=== PATIENT | male | born 1955 | race Caucasian/White ===

== ENCOUNTER → 2018-07-02 | Day surgery (SDC) | payer BC ==
[2018-06-30 15:29] LABS: BASOPHILS % 0.5 % (0.0-1.0); EOSINOPHILS # (AUTO) 0.1 (0.0-0.4); EOSINOPHILS % 1.2 % (0.0-6.0); HEMOGLOBIN 15.5 g/dL (14.0-18.0); LYMPHOCYTES # (AUTO) 2.4 (1.0-3.2); LYMPHOCYTES % 31.3 % (18.0-39.1); MEAN CORPUSCULAR HEMOGLOBIN 32.6 pg (28-32); MEAN CORPUSCULAR HGB CONC 34.4 g/dL (31-35); MEAN CORPUSCULAR VOLUME 94.5 fL (81-99); MONOCYTES # (AUTO) 0.8 (0.2-0.8); MONOCYTES % 10.7 % (4.4-11.3); NEUTROPHILS # (AUTO) 4.2 (2.1-6.9); PLATELET COUNT 207 x10e3/uL (140-360); RED BLOOD COUNT 4.76 x10e6/uL (4.3-5.7); RED CELL DISTRIBUTION WIDTH 13.5 % (11.7-14.4)
[~2018-07-02] MED LIST: ADVIL200 M1 PO; ALIGN4 MG PO; ATORVASTATIN CA20 MG PO; ATORVASTATIN CA40 MG PO; BENADRYL25 M1 PO; BENICAR HCT 401 EAC1 PO; BENICAR HCT 401 EACH PO; CO Q-10 100 MG1 EACH PO; COCONUT OIL100 GM PO; ECOTRIN325 MG PO; EPHEDRINE SULFATE INJ 50 MG/10 ML SYR ONE; FENTANYL CITRATE/PF 100MCG/2 ML INJ ONE; FISH OIL 1,0001 EAC2 PO; FLAXSEED340 GM PO; GLUCAGON FOR INJ 1 MG VIAL ONE; HYOSCYAMINE SULFATE 0.5 MG/ML INJ ONE; LIDOCAINE HCL 2% LOCAL INJ 5 ML SDV VIAL INJ ONE; METOPROLOL TART25 MG PO; MIDAZOLAM HCL 2 MG/2 ML VIAL ONE; MULTI-VITAMIN1 EACH PO; NIACIN500 M1 PO; PANTOPRAZOLE SO40 MG PO; PRILOSEC20 MG PO; PROPOFOL IV EMULSION 10 MG/ML 50 ML VIAL ONE; PROTONIX40 MG/ML PO; VITAMIN B-121000 MCG PO; VITAMIN C1000 MG PO
[2018-07-02 12:00] VITALS: BP 108/70
--- NOTE | 2018-07-02 14:00 | Operative Report ---
DATE OF PROCEDURE: July 02, 2018 REFERRING PHYSICIAN: Dr. Johnny Rene. PROCEDURE PERFORMED: Colonoscopy and polypectomy. INDICATIONS FOR COLONOSCOPY: Surveillance colonoscopy, personal history of numerous colon polyps. MEDICATION: Patient was done under MAC. Please see anesthesiologist's note. PROCEDURE: With the patient in the left lateral decubitus position, the flexible fiberoptic Olympus colonoscope was inserted into the rectum with ease and advanced all the way to the cecum. There were some retained stools, but visualization was fair. The scope was then withdrawn slowly. Mucosa overlying the cecum appeared to be within normal limits as well as the ascending and the transverse colon. Four polyps were snared, and two polyps were hot biopsied from the descending colon. Diverticular disease was noted to involve the descending and the sigmoid colon. A total of 6 polyps were hot biopsied from the sigmoid colon. A total of 15 polyps were hot biopsied from the rectum. The scope was then retroflexed into the distal rectum and small internal hemorrhoids were noted, none of which was actively bleeding. The scope was then straightened out. It was subsequently withdrawn. Patient tolerated procedure well. IMPRESSION: 1. Descending colon polyps times 6, 4 snared and 2 hot biopsied. 2. Diverticulosis. 3. Sigmoid colon polyps times 6 hot biopsied. 4. Rectal polyps times 15 hot biopsied. 5. Internal hemorrhoids, none actively bleeding. PLAN: Follow up histology. Initiate high-fiber low-fat diet. Initiate high-fiber supplement. Patient has hyper-polyposis syndrome by definition. Will need a followup colonoscopy later this year to remove metachronous colon and rectal polyps. Job#: [id number] EV cc:JOHNNY RENE DO
== END | disposition home or self-care (01) ==
LOC: OR 09:04
PROVIDERS: ATTEND Internal Medicine Gastroenterology
DX: Z12.11 Encounter for screening for malignant neoplasm of colon (principal); Z86.010 Personal history of colon polyps; K63.5 Polyp of colon; K62.1 Rectal polyp; I10 Essential (primary) hypertension; E78.00 Pure hypercholesterolemia, unspecified; I25.2 Old myocardial infarction; F17.210 Nicotine dependence, cigarettes, uncomplicated; K29.70 Gastritis, unspecified, without bleeding; K44.9 Diaphragmatic hernia without obstruction or gangrene; K64.8 Other hemorrhoids; K21.0 Gastro-esophageal reflux disease with esophagitis; K57.30 Diverticulosis of large intestine without perforation or abscess without bleeding; Z01.810 Encounter for preprocedural cardiovascular examination; Z01.812 Encounter for preprocedural laboratory examination
CPT/HCPCS: 36415; 45384; 45385; 85025; 93005; J1610; J1980; J2001; J2250; 45378

== ENCOUNTER → 2018-08-13 | Day surgery (SDC) | payer BC ==
[~2018-08-13] MED LIST changes: -EPHEDRINE SULFATE INJ 50 MG/10 ML SYR ONE; -GLUCAGON FOR INJ 1 MG VIAL ONE; -LIDOCAINE HCL 2% LOCAL INJ 5 ML SDV VIAL INJ ONE; +PHENYLEPHRINE HCL 1% 10 MG/ML VIAL ONE; +SIMETHICONE 40 MG/0.6 ML BTL ONE
[2018-08-13 09:55] VITALS: BP 101/78
--- NOTE | 2018-08-13 12:15 | Operative Report ---
DATE OF PROCEDURE: August 13, 2018 REFERRING PHYSICIAN: Dr. Johnny Rene. PROCEDURE PERFORMED: Colonoscopy and polypectomy. INDICATIONS FOR COLONOSCOPY: This is a surveillance colonoscopy, patient had 27 polyps removed on the previous colonoscopy. Procedure is being carried out to remove any synchronous colorectal neoplasm. MEDICATION: Patient was done under MAC. Please see anesthesiologist's note. PROCEDURE: With the patient in the left lateral decubitus position, the flexible fiberoptic Olympus colonoscope was inserted into the rectum with ease and advanced all the way to the cecum. It was then withdrawn slowly. Mucosa overlying the cecum, ascending colon and transverse colon appeared to be within normal limits. One polyp was snared and 1 polyp was hot biopsied from the descending colon. Diverticular disease was noted to involve the distal descending and the sigmoid colon. Eight polyps were snared and 4 polyps were hot biopsied from the sigmoid colon, and 17 polyps were hot biopsied from the rectum. The scope was then retroflexed into the distal rectum and small internal hemorrhoids were noted, none of which was actively bleeding. The scope was then straightened out. It was subsequently withdrawn. Patient tolerated the procedure well. IMPRESSION: 1. Descending colon polyps times 2, 1 snared and 1 hot biopsied. 2. Diverticulosis. 3. Descending colon polyps times 12, 8 snared and 4 hot biopsied. 4. Rectal polyps times 17, hot biopsied. 5. Internal hemorrhoids, none actively bleeding. 6. A total of 31 polyps were removed. PLAN: Follow up histology. Initiate high-fiber low-fat diet. Patient will need a colonoscopy in 1 year. Patient by definition meets the criteria of hyperpolyposis syndrome. Job#: [id number] EV cc:JOHNNY RENE DO
== END | disposition home or self-care (01) ==
LOC: OR 06:32 → MERGE 09:00
PROVIDERS: ATTEND Internal Medicine Gastroenterology
DX: Z09 Encounter for follow-up examination after completed treatment for conditions other than malignant neoplasm (principal); K63.5 Polyp of colon; K62.1 Rectal polyp; K57.30 Diverticulosis of large intestine without perforation or abscess without bleeding; K64.8 Other hemorrhoids; K29.60 Other gastritis without bleeding; K21.9 Gastro-esophageal reflux disease without esophagitis; K20.8 Other esophagitis; K44.9 Diaphragmatic hernia without obstruction or gangrene; I10 Essential (primary) hypertension; E78.00 Pure hypercholesterolemia, unspecified; I25.2 Old myocardial infarction; F17.210 Nicotine dependence, cigarettes, uncomplicated; Z79.82 Long term (current) use of aspirin
CPT/HCPCS: 45384; 45385; J1980; J2250; J2370; 45378

== ENCOUNTER → 2019-06-17 | Day surgery (SDC) | payer MEDICARE, BC ==
[~2019-06-17] MED LIST changes: +HYOSCYAMINE 0.125 MG TAB ONE; -HYOSCYAMINE SULFATE 0.5 MG/ML INJ ONE; -SIMETHICONE 40 MG/0.6 ML BTL ONE
[2019-06-17 09:50] LABS: BASOPHILS # (AUTO) 0.1 (0.0-0.1); BASOPHILS % 0.5 % (0.0-1.0); EOSINOPHILS # (AUTO) 0.1 (0.0-0.4); EOSINOPHILS % 0.4 % (0.0-6.0); HEMATOCRIT 48.9 % (38.2-49.6); HEMOGLOBIN 16.7 g/dL (14.0-18.0); LYMPHOCYTES # (AUTO) 2.6 (1.0-3.2); LYMPHOCYTES % 21.8 % (18.0-39.1); MEAN CORPUSCULAR HEMOGLOBIN 31.7 pg (28-32); MEAN CORPUSCULAR HGB CONC 34.2 g/dL (31-35); MONOCYTES # (AUTO) 0.9 (0.2-0.8); MONOCYTES % 7.6 % (4.4-11.3); NEUTROPHILS # (AUTO) 8.4 (2.1-6.9); NEUTROPHILS % 69.5 % (38.7-80.0); PLATELET COUNT 283 x10e3/uL (140-360); RED BLOOD COUNT 5.26 x10e6/uL (4.3-5.7); RED CELL DISTRIBUTION WIDTH 13.8 % (11.7-14.4)
[2019-06-17 12:00] VITALS: BP 100/60
--- NOTE | 2019-06-17 18:14 | Operative Report ---
DATE OF PROCEDURE: 06/17/2019 SURGEON: Kevin Loera MD PROCEDURE: Colonoscopy and polypectomy. INDICATIONS FOR COLONOSCOPY: History of hyper-polyposis syndrome. Thirty-one polyps were removed in 2018. MEDICATIONS: The patient was done under MAC, please see anesthesiologist's note. PROCEDURE IN DETAIL: With the patient in left lateral decubitus position, a flexible fiberoptic Olympus colonoscope was inserted into the rectum with ease and advanced all the way to the cecum. Diverticular disease was noted to be scattered pretty much throughout and was more prominent in the left colon. Other than for diverticular disease, the cecum, ascending and transverse appeared to be within normal limits. One polyp was snared from the descending colon. Six polyps were snared and three polyps were hot biopsied from the sigmoid colon. The rectum grossly appeared to be within normal limits. The scope was then retroflexed into the distal rectum and small internal hemorrhoids were noted, none of which was actively bleeding. The scope was then straightened out, it was subsequently withdrawn, and the patient tolerated the procedure well. IMPRESSION: 1. Diverticulosis. 2. Descending colon polyp, snared. 3. Sigmoid colon polyps x9, six snared and three hot biopsied. 4. Internal hemorrhoids, none actively bleeding. PLAN: Follow up histology. Initiate high-fiber, low-fat diet. Initiate high-fiber supplement. The patient might benefit from a followup colonoscopy in one year. A total of 10 polyps were removed. Kevin Loera MD [facility]HELLE /[id number] cc: Johnny Mckeon DO
== END | disposition home or self-care (01) ==
LOC: OR 09:06
PROVIDERS: ATTEND Internal Medicine Gastroenterology
DX: Z09 Encounter for follow-up examination after completed treatment for conditions other than malignant neoplasm (principal); D12.4 Benign neoplasm of descending colon; K57.30 Diverticulosis of large intestine without perforation or abscess without bleeding; K64.8 Other hemorrhoids; K29.70 Gastritis, unspecified, without bleeding; K20.8 Other esophagitis; K21.9 Gastro-esophageal reflux disease without esophagitis; I25.10 Atherosclerotic heart disease of native coronary artery without angina pectoris; I10 Essential (primary) hypertension; I25.2 Old myocardial infarction; E78.5 Hyperlipidemia, unspecified; F17.210 Nicotine dependence, cigarettes, uncomplicated; Z01.810 Encounter for preprocedural cardiovascular examination; Z01.812 Encounter for preprocedural laboratory examination; Z79.82 Long term (current) use of aspirin
CPT/HCPCS: 36415; 45384; 45385; 85025; 88305; 93005; J2250; J2370; J2704; J3010; 45378

== ENCOUNTER → 2020-07-13 | Day surgery (SDC) | payer MEDICARE, BC ==
[2020-07-10 11:01] LABS: BASOPHILS # (AUTO) 0.1 (0.0-0.1); BASOPHILS % 0.5 % (0.0-1.0); EOSINOPHILS # (AUTO) 0.1 (0.0-0.4); EOSINOPHILS % 0.8 % (0.0-6.0); HEMATOCRIT 44.8 % (38.2-49.6); HEMOGLOBIN 15.3 g/dL (14.0-18.0); LYMPHOCYTES # (AUTO) 2.9 (1.0-3.2); LYMPHOCYTES % 29.5 % (18.0-39.1); MEAN CORPUSCULAR HEMOGLOBIN 31.5 pg (28-32); MEAN CORPUSCULAR HGB CONC 34.2 g/dL (31-35); MEAN CORPUSCULAR VOLUME 92.4 fL (81-99); MONOCYTES # (AUTO) 0.9 (0.2-0.8); MONOCYTES % 8.8 % (4.4-11.3); NEUTROPHILS % 60.1 % (38.7-80.0); PLATELET COUNT 238 x10e3/uL (140-360); RED BLOOD COUNT 4.85 x10e6/uL (4.3-5.7); RED CELL DISTRIBUTION WIDTH 13.6 % (11.7-14.4)
[~2020-07-13] MED LIST changes: +HYDROCHLOROTHIA25 MG; +LIDOCAINE HCL 2% LOCAL INJ 5 ML SDV VIAL INJ ONE; -MIDAZOLAM HCL 2 MG/2 ML VIAL ONE; +MIDAZOLAM HCL 5 MG/ML VIAL ONE; -PHENYLEPHRINE HCL 1% 10 MG/ML VIAL ONE; +PROPOFOL IV EMULSION 10 MG/ML 20 ML VIAL ONE; -PROPOFOL IV EMULSION 10 MG/ML 50 ML VIAL ONE
[2020-07-13 11:15] VITALS: BP 110/67
== END | disposition home or self-care (01) ==
LOC: OR 07:59
PROVIDERS: ATTEND Internal Medicine Gastroenterology
DX: Z09 Encounter for follow-up examination after completed treatment for conditions other than malignant neoplasm (principal); K63.5 Polyp of colon; K62.1 Rectal polyp; K57.30 Diverticulosis of large intestine without perforation or abscess without bleeding; K64.8 Other hemorrhoids; K29.60 Other gastritis without bleeding; K20.90 Esophagitis, unspecified without bleeding; I10 Essential (primary) hypertension; E78.5 Hyperlipidemia, unspecified; I25.2 Old myocardial infarction; F17.210 Nicotine dependence, cigarettes, uncomplicated; Z01.810 Encounter for preprocedural cardiovascular examination; Z01.812 Encounter for preprocedural laboratory examination; Z20.828 Contact with and (suspected) exposure to other viral communicable diseases; Z79.82 Long term (current) use of aspirin
CPT/HCPCS: 36415; 45384; 45385; 85025; 88305; 93005; U0002; 45378; J2001; J2250; J3010